=== PATIENT | female | born 1945 | race Caucasian/White ===

== ENCOUNTER → 2020-08-15 | Outpatient (CLI) | payer MEDICARE ==
[~2020-08-15] MED LIST: ASPIR 8181 MG PO; CEFDINIR300 MG PO; HYDRALAZINE HCL 20 MG/ML VIAL ONE; IRBESARTAN150 MG PO; LOVASTATIN20 MG PO; MONTELUKAST SOD10 MG PO; OMEPRAZOLE40 MG PO; PREDNISONE20 MG PO; REGADENOSON 0.4 MG/5 ML SYR IV ONE; VITAMIN D31000 UNI1 PO
== END ==
LOC: RAD 08:38
PROVIDERS: ATTEND Internal Medicine
DX: R07.9 Chest pain, unspecified (principal); R42 Dizziness and giddiness; M79.605 Pain in left leg; M79.604 Pain in right leg; I73.9 Peripheral vascular disease, unspecified
CPT/HCPCS: 78452; 93017; 93306; 93880; 93925; A9502; J0360; J2785

== ENCOUNTER 2020-12-12 12:29 | Observation (INO) | payer MEDICARE ==
[2020-12-12] VITALS (8 sets, daily range): BP systolic 110–142; BP diastolic 60–88
[~2020-12-12] VITALS: Ht 154.9 cm; Wt 59.9 kg
[~2020-12-12 12:29] MED LIST changes: -HYDRALAZINE HCL 20 MG/ML VIAL ONE; -REGADENOSON 0.4 MG/5 ML SYR IV ONE
[2020-12-12] MEDS ORDERED: SODIUM CHLORIDE 0.9% 500ML 500 ML IV ONE (13:00)
[2020-12-12 13:03] LABS: BASOPHILS % 0.2 % (0.0-1.0); EOSINOPHILS # (AUTO) 0.1 (0.0-0.4); EOSINOPHILS % 0.6 % (0.0-6.0); HEMATOCRIT 42.3 % (34.2-44.1); HEMOGLOBIN 13.6 g/dL (12.0-16.0); LYMPHOCYTES # (AUTO) 1.6 (1.0-3.2); LYMPHOCYTES % 12.3 % (18.0-39.1); MEAN CORPUSCULAR HGB CONC 32.2 g/dL (31-35); MEAN CORPUSCULAR VOLUME 93.4 fL (81-99); MONOCYTES # (AUTO) 1.1 (0.2-0.8); MONOCYTES % 8.8 % (4.4-11.3); NEUTROPHILS # (AUTO) 9.8 (2.1-6.9); NEUTROPHILS % 77.6 % (38.7-80.0); PLATELET COUNT 330 x10e3/uL (140-360); RED BLOOD COUNT 4.53 x10e6/uL (3.6-5.1); RED CELL DISTRIBUTION WIDTH 13.6 % (11.7-14.4)
[2020-12-12 13:13] LABS: CLARITY,URINE CLEAR (CLEAR); COLOR,URINE YELLOW (YELLOW)
[2020-12-12 13:14] LABS: KETONES,URINE NEGATIVE (NEGATIVE); LEUKOCYTE ESTERASE ,URINE TRACE (NEGATIVE); NITRITE,URINE NEGATIVE (NEGATIVE); PROTEIN,URINE DIPSTICK 1+ (NEGATIVE)
[2020-12-12 13:26] LABS: BACTERIA,URINE FEW /HPF; EPITHELIAL CELLS,URINE FEW /LPF; RBC,URINE 0-5 /HPF (0-5)
[2020-12-12 13:27] LABS: ALBUMIN 3.5 g/dL (3.5-5.0); ALBUMIN/GLOBULIN RATIO 0.7 (0.8-2.0); ANION GAP 15.4 mmol/L (8-16); CALCIUM 9.5 mg/dL (8.4-10.2); CREATININE, SERUM 1.13 mg/dL (0.57-1.11); OVAL FAT BODIES,URINE MODERATE; POTASSIUM 4.4 mmol/L (3.5-5.1)
[2020-12-12] MEDS ORDERED: IOPAMIDOL 370 MG/ML 200 ML INFUS..BTL INJ ONE (13:49)
[2020-12-12] MEDS ORDERED: SODIUM CHLORIDE 0.9% 50ML 0 ML ONE (13:49)
[2020-12-12] MEDS ORDERED: PIPERACILLIN/TAZO 4.5 GM 100 ML IV ONE (15:00)
[2020-12-12] MEDS ORDERED: BUPIVACAINE HCL 0.5% INJ 30 ML VIAL INJ ONE (16:32)
[2020-12-12] MEDS ORDERED: ALBUTEROL1.25 MG/3 NEB (17:33)
[2020-12-12] MEDS ORDERED: BREO ELLIPTA 21 EACH INH (17:41)
[2020-12-12] MEDS ORDERED: AMLODIPINE BESYL5 MG PO (17:41)
[2020-12-12] MEDS ORDERED: ONDANSETRON HCL INJ 2MG/ML 2ML 2 MG/ML VIAL IV PRN (20:15)
[2020-12-12] MEDS ORDERED: ACETAMINOPHEN 325 MG TAB PO PRN (20:15)
[2020-12-12] MEDS ORDERED: MORPHINE SULFATE INJ 4 MG/ML INJ 1ML IV PRN (20:15)
[2020-12-12] MEDS: SODIUM CHLORIDE 0.9% 1000ML 1,000 ML IV SCH (21:27)
[2020-12-12] MEDS: HYDROCODONE/APAP 5MG-325MG TAB PO PRN (22:10)
[2020-12-12] MEDS: PIPERACILLIN/TAZOBACTAM 3.375 GM in SODIUM CHLORIDE 0.9% 50ML 50 ML IV SCH (23:41)
[2020-12-13] VITALS (8 sets, daily range): BP systolic 94–113; BP diastolic 56–65
[2020-12-13] MEDS: HYDROCODONE/APAP 5MG-325MG TAB PO PRN ×3 (04:18→20:45)
[2020-12-13] MEDS: PIPERACILLIN/TAZOBACTAM 3.375 GM in SODIUM CHLORIDE 0.9% 50ML 50 ML IV SCH ×3 (05:20→17:59)
[2020-12-13 05:30] LABS: BASOPHILS % 0.1 % (0.0-1.0); HEMATOCRIT 32.9 % (34.2-44.1); HEMOGLOBIN 10.8 g/dL (12.0-16.0); LYMPHOCYTES # (AUTO) 0.3 (1.0-3.2); LYMPHOCYTES % 2.4 % (18.0-39.1); MEAN CORPUSCULAR HEMOGLOBIN 29.8 pg (28-32); MEAN CORPUSCULAR HGB CONC 32.8 g/dL (31-35); MEAN CORPUSCULAR VOLUME 90.6 fL (81-99); MONOCYTES # (AUTO) 0.6 (0.2-0.8); MONOCYTES % 4.2 % (4.4-11.3); NEUTROPHILS # (AUTO) 13.3 (2.1-6.9); NEUTROPHILS % 92.7 % (38.7-80.0); PLATELET COUNT 248 x10e3/uL (140-360); RED BLOOD COUNT 3.63 x10e6/uL (3.6-5.1); RED CELL DISTRIBUTION WIDTH 13.4 % (11.7-14.4)
[2020-12-13] MEDS: SODIUM CHLORIDE 0.9% 1000ML 1,000 ML IV SCH ×2 (06:33→17:38)
[2020-12-13 07:22] LABS: ALBUMIN 2.4 g/dL (3.5-5.0); ALBUMIN/GLOBULIN RATIO 0.7 (0.8-2.0); ANION GAP 13.6 mmol/L (8-16); CALCIUM 7.9 mg/dL (8.4-10.2); CREATININE, SERUM 0.93 mg/dL (0.57-1.11); MAGNESIUM 1.5 MG/DL (1.3-2.1); POTASSIUM 4.6 mmol/L (3.5-5.1)
[2020-12-13] MEDS: AMLODIPINE BESYLATE 5 MG TAB PO SCH (09:07)
[2020-12-13] MEDS: MONTELUKAST SODIUM 10 MG TAB PO SCH (09:07)
[2020-12-14] VITALS: BP 109/67
[2020-12-14] MEDS: HYDROCODONE/APAP 5MG-325MG TAB PO PRN (00:45)
[2020-12-14 04:00] VITALS: BP 104/77
[2020-12-14] MEDS: PIPERACILLIN/TAZOBACTAM 3.375 GM in SODIUM CHLORIDE 0.9% 50ML 50 ML IV SCH ×3 (05:17)
[2020-12-14] MEDS: SODIUM CHLORIDE 0.9% 1000ML 1,000 ML IV SCH (05:17)
[2020-12-14 07:41] VITALS: BP 103/68
[2020-12-14 07:44] VITALS: BP 103/68
[2020-12-14] MEDS: MONTELUKAST SODIUM 10 MG TAB PO SCH (08:34)
[2020-12-14] MEDS: AMLODIPINE BESYLATE 5 MG TAB PO SCH (08:34)
[2020-12-14] MEDS ORDERED: ALBUTEROL SULF 0.083% NEB SOLN 3 ML NEB NEB NR (09:45)
== END 2020-12-14 13:20 | disposition home or self-care (01) ==
LOC: ER 12:38 → ERHOLD 15:07 → MED/SURG3 16:40
PROVIDERS: ADMIT Internal Medicine; ATTEND Internal Medicine
DX: K35.80 Unspecified acute appendicitis (principal); U07.1 COVID-19; K21.9 Gastro-esophageal reflux disease without esophagitis; E78.5 Hyperlipidemia, unspecified; I12.9 Hypertensive chronic kidney disease with stage 1 through stage 4 chronic kidney disease, or unspecified chronic kidney disease; N18.30 Chronic kidney disease, stage 3 unspecified; Z82.49 Family history of ischemic heart disease and other diseases of the circulatory system; J45.909 Unspecified asthma, uncomplicated; K66.0 Peritoneal adhesions (postprocedural) (postinfection)
CPT/HCPCS: 36415 ×2; 44238; 44970; 74177; 80053 ×2; 81001; 83690; 83735; 85025 ×2; 88304; 99284; G0378 ×3; J2405; J2543 ×4; J7030 ×3; J7040; Q9967; U0002